=== PATIENT | female | born 1970 | race African-American/Black ===

== ENCOUNTER 2018-04-14 21:57 | Emergency (ER) | payer BC ==
[2018-04-15] MEDS ORDERED: SULFAMETHOXAZOLE/TRIMETHOPRIM 800-160 MG TABLET PO ONE (01:22)
[2018-04-15] MEDS ORDERED: CEPHALEXIN 500 MG CAPSULE PO ONE (01:22)
--- NOTE | 2018-04-15 01:28 | ER Document Report ---
HPI - HPI Pain Level: 5 Notes: Patient presents with possible abscess to the chest wall. Patient reports it has been there for several weeks, patient reports she has squeezed it and has drained out greenish colored fluid. Patient denies any history of abscesses. Past Medical History - General Information source: Patient - Social History Smoking Status: Never Smoker Family History: Reviewed & Not Pertinent Patient has suicidal ideation: No Patient has homicidal ideation: No - Past Medical History Cardiac Medical History: Reports: Hx Hypertension Renal/ Medical History: Denies: Hx Peritoneal Dialysis - Immunizations Hx Diphtheria, Pertussis, Tetanus Vaccination: Yes Vertical Provider Document - CONSTITUTIONAL Notes: PHYSICAL EXAMINATION: GENERAL: Well-appearing, well-nourished and in no acute distress. HEAD: Atraumatic, normocephalic. EYES: Pupils equal round extraocular movements intact, conjunctiva are normal. ENT: Nares patent NECK: Normal range of motion LUNGS: No respiratory distress Musculoskeletal: Normal range of motion NEUROLOGICAL: Normal speech, normal gait. PSYCH: Normal mood, normal affect. SKIN: Warm, Dry, normal turgor, no rashes or lesions noted. Area of erythema with induration and small amount of fluctuance noted to left chest wall just left of the sternum. - INFECTION CONTROL TRAVEL OUTSIDE OF THE [place] IN LAST 30 DAYS: No Course - Re-evaluation Re-evalutation: Incision and drainage performed, see procedure note, large amount of purulent drainage obtained, packing placed, patient instructed to return in 24-36 hours for packing removal. 04/15/18 01:29 - Vital Signs Vital signs: Temp Pulse Resp BP Pulse Ox 98.0 F 80 18 153/86 H 100 04/14/18 22:20 04/14/18 22:20 04/14/18 22:20 04/14/18 22:20 04/14/18 22:20 Procedures - Incision and Drainage chest wall Type: Simple Blade size: 11 I&D procedure: Betadine prep applied, Iodoform packing placed Incision Method: Incision made by scalpel Discharge - Discharge Clinical Impression: Abscess Condition: Stable Disposition: HOME, SELF-CARE Additional Instructions: ABSCESS: You have an abscess (boil). This a pus-forming infection, usually due to staph. Some boils may be left to drain on their own, but most require lancing. From the time the tender lump first appears, it may be three or four days before the abscess is ready to cooper. Local heat and rest help at this stage of treatment. An antibiotic may prevent spread of the infection. Once the abscess is opened, packing may be placed into it. This is done so pus is not sealed inside by premature closure of the cavity. The packing will be removed at your follow-up visit or you may be advised to remove it yourself at home. Sometimes this packing must be replaced a few times during healing. The wound will heal with surprisingly little scar. Depending on the size and location of an abscess, healing can take one to four weeks. You may shower and wash the area around the incision site two or three times a day. Antibiotics may be prescribed, but are usually not necessary after an abscess has been drained. If you develop fever, chills, worsening pain, or increasing swelling in the area, call the doctor or return immediately. POST INCISION AND DRAINAGE: You have had an incision made to allow drainage of an abscess. The incision must remain open so that pus and debris can drain from the wound. If the abscess cavity is large, packing is placed. This keeps the tissues from collapsing and trapping pus inside, while the body shrinks the cavity. The packing may need to be replaced every day or two. The physician will instruct you on the packing. Keep a bulky dressing over the area. Replace it if it becomes saturated with blood or pus. Do not disturb the packing (if present). You may shower and cleanse the area with gentle soap and warm water two or three times a day. Local warmth may be soothing, and may promote faster healing. Return if you develop high fever or chills, or if you note spreading redness, increasing swelling, or increasing tenderness. CEPHALEXIN: The antibiotic you've been prescribed is a member of the cephalosporin class. This type of antibiotic covers a wide variety of infections, including those of the skin, lungs, and urinary tract. It's useful for staph infections. This antibiotic is slightly similar to the penicillin family. In rare cases , a person who is allergic to penicillin will also be allergic to this medication. If you have had a severe allergic reaction to penicillin, and have not taken this antibiotic since that time, notify your doctor. Antibiotics which cover many germs ("broad spectrum" antibiotics) are more likely to cause diarrhea or "yeast" infections. Women prone to vaginal yeast problems may suffer an attack after taking this antibiotic. In infants, oral thrush (white spots "stuck" on the cheek) or yeast diaper rash may result. See your doctor if these problems occur. Call at once if you develop itching, hives , shortness of breath, or lightheadedness. TRIMETHOPRIM-SULFA: You have been given a prescription for trimethoprim-sulfa (TMS, Septra, Bactrim). This is a combination antibiotic of the sulfa class, often used for urinary tract infections, middle ear infections, bronchitis, shigella intestinal infection, and Pneumocystis pneumonia. TMS is usually well-tolerated. Occasional side effects include nausea and decreased appetite. Septra is not recommended for infants less than two months of age. Do not take this medication if you have experienced severe side effects or allergy to sulfa medicine. You should stop this medicine at once and contact your physician if you develop any rash, joint pain, shortness of breath, bruising, or jaundice ( yellow color in the skin), or if you develop any other new or unusual symptoms. FOLLOW-UP CARE: Most simple abscesses will not require a follow up visit. If you had packing placed in the abscess, remove it as instructed by the physician. If you have been referred to a physician for follow-up care, call the physicians office for an appointment as you were instructed or within the next two days. If you experience worsening or a significant change in your symptoms, return to the Emergency Department at any time for re-evaluation. Please return in 24-36 hours to have the packing removed, bring your packing with you as I may need to replace it. Take all medications as prescribed. Once the packing is removed I would like you to use warm soaks to the area and hot compresses. This will help draw out the infection. Prescriptions: Cephalexin Monohydrate [Keflex 500 mg Capsule] 500 mg PO Q6H 5 Days #20 capsule Sulfamethoxazole/Trimethoprim [Bactrim Ds Tablet] 2 tab PO BID #28 tablet Referrals: RUBY SAINZ MD [Primary Care Provider] - Follow up as needed
[2018-04-15 01:58] VITALS: BP 124/65
== END 2018-04-15 01:58 | disposition home or self-care (01) ==
LOC: ER 21:57
PROC: 0H95XZZ Drainage of Chest Skin, External Approach (ICD-10-PCS; principal; 2018-04-14)
DX: L02.213 Cutaneous abscess of chest wall (principal); I10 Essential (primary) hypertension
CPT/HCPCS: 99283; 10060; A6266

== ENCOUNTER 2018-04-15 18:23 | Emergency (ER) | payer BC ==
[2018-04-15 19:12] VITALS: BP 131/72
--- NOTE | 2018-04-15 20:12 | ER Document Report ---
ED Wound - General Chief Complaint: Wound Recheck Stated Complaint: ABSCESS RECHECK Time Seen by Provider: 04/15/18 20:10 Notes: Patient is a 48-year-old female who presents with chief complaint of wound recheck and packing removal request. Patient had abscess to the left chest wall drained approximately 24 hours ago. TRAVEL OUTSIDE OF THE [place] IN LAST 30 DAYS: No - Related Data Allergies/Adverse Reactions: No Known Allergies Allergy (Verified 04/15/18 18:25) Past Medical History - General Information source: Patient - Social History Smoking Status: Never Smoker Chew tobacco use (# tins/day): No Frequency of alcohol use: None Drug Abuse: None Family History: Reviewed & Not Pertinent Patient has suicidal ideation: No Patient has homicidal ideation: No - Past Medical History Cardiac Medical History: Reports: Hx Hypertension Renal/ Medical History: Denies: Hx Peritoneal Dialysis Surgical Hx: Negative - Immunizations Hx Diphtheria, Pertussis, Tetanus Vaccination: Yes Review of Systems - Review of Systems Constitutional: No symptoms reported EENT: No symptoms reported Cardiovascular: No symptoms reported Respiratory: No symptoms reported Gastrointestinal: No symptoms reported Genitourinary: No symptoms reported Female Genitourinary: No symptoms reported Musculoskeletal: No symptoms reported Skin: No symptoms reported Hematologic/Lymphatic: No symptoms reported Neurological/Psychological: No symptoms reported Physical Exam - Vital signs Vitals: Temp Pulse Resp BP Pulse Ox 98.7 F 67 16 131/72 H 100 04/15/18 19:11 04/15/18 19:11 04/15/18 19:11 04/15/18 19:11 04/15/18 19:11 - Notes Notes: PHYSICAL EXAMINATION: GENERAL: Well-appearing, well-nourished and in no acute distress. HEAD: Atraumatic, normocephalic. EYES: Pupils equal round extraocular movements intact, conjunctiva are normal. ENT: Nares patent NECK: Normal range of motion LUNGS: No respiratory distress Musculoskeletal: Normal range of motion NEUROLOGICAL: Normal speech, normal gait. PSYCH: Normal mood, normal affect. SKIN: Warm, Dry, normal turgor, no rashes or lesions noted. Abscess to left chest wall appears to be healing well Course - Re-evaluation Re-evalutation: Packing removed, abscess irrigated with normal saline, packing replaced. Patient will return in 24-48 hours for packing removal and wound recheck. - Vital Signs Vital signs: Temp Pulse Resp BP Pulse Ox 98.7 F 67 16 131/72 H 100 04/15/18 19:11 04/15/18 19:11 04/15/18 19:11 04/15/18 19:11 04/15/18 19:11 Discharge - Discharge Clinical Impression: Abscess Condition: Stable Disposition: HOME, SELF-CARE Additional Instructions: Abscess You have an abscess (boil). This a pus-forming infection, usually due to staph. Some boils may be left to drain on their own, but most require lancing. From the time the tender lump first appears, it may be three or four days before the abscess is ready to cooper. Local heat and rest help at this stage of treatment. An antibiotic may prevent spread of the infection. Once the abscess is opened, packing may be placed into it. This is done so pus is not sealed inside by premature closure of the cavity. The packing will be removed at your follow-up visit or you may be advised to remove it yourself at home. Sometimes this packing must be replaced a few times during healing. The wound will heal with surprisingly little scar. Depending on the size and location of an abscess, healing can take one to four weeks. You may shower and wash the area around the incision site two or three times a day. Antibiotics may be prescribed, but are usually not necessary after an abscess has been drained. If you develop fever, chilling, worsening pain, or increasing swelling in the area, call the doctor or return immediately. Please return tomorrow in 24 hours for repacking of the wound. Continue taking the antibiotics as directed. Referrals: RUBY SAINZ MD [Primary Care Provider] - Follow up as needed
== END 2018-04-15 20:17 | disposition home or self-care (01) ==
LOC: ER 18:23
DX: L02.213 Cutaneous abscess of chest wall (principal)
CPT/HCPCS: 99282

== ENCOUNTER 2018-04-16 18:02 | Emergency (ER) | payer BC ==
[2018-04-16 18:16] VITALS: BP 140/73
--- NOTE | 2018-04-16 18:41 | ER Document Report ---
HPI - HPI Pain Level: 3 Notes: Patient is a 48-year-old female who presents with chief complaint of left chest wall abscess. Patient had this drained 2 days ago, patient has been here every day since then to have packing changed. Patient denies any new complaints. Past Medical History - General Information source: Patient - Social History Smoking Status: Never Smoker Chew tobacco use (# tins/day): No Frequency of alcohol use: None Drug Abuse: None Family History: Reviewed & Not Pertinent Patient has suicidal ideation: No Patient has homicidal ideation: No - Past Medical History Cardiac Medical History: Reports: Hx Hypertension Renal/ Medical History: Denies: Hx Peritoneal Dialysis - Immunizations Hx Diphtheria, Pertussis, Tetanus Vaccination: Yes Vertical Provider Document - CONSTITUTIONAL Notes: PHYSICAL EXAMINATION: GENERAL: Well-appearing, well-nourished and in no acute distress. HEAD: Atraumatic, normocephalic. EYES: Pupils equal round extraocular movements intact, conjunctiva are normal. ENT: Nares patent NECK: Normal range of motion LUNGS: No respiratory distress Musculoskeletal: Normal range of motion NEUROLOGICAL: Normal speech, normal gait. PSYCH: Normal mood, normal affect. SKIN: Warm, Dry, normal turgor, no rashes or lesions noted. Area of abscess appears to be healing well. - INFECTION CONTROL TRAVEL OUTSIDE OF THE [place] IN LAST 30 DAYS: No Course - Re-evaluation Re-evalutation: Packing was removed, patient reports she has only had to change the dressing a couple of times and there has been minimal drainage. I will not repack the wound at this time. I would like patient to follow-up with the surgical clinic as the abscess was fairly extensive. Patient is agreeable to same. - Vital Signs Vital signs: Temp Pulse Resp BP Pulse Ox 98.6 F 82 18 140/73 H 100 04/16/18 18:14 04/16/18 18:14 04/16/18 18:14 04/16/18 18:14 04/16/18 18:14 Discharge - Discharge Clinical Impression: Abscess, Abscess packing removal Condition: Stable Disposition: HOME, SELF-CARE Additional Instructions: Your abscess appears to be healing well. I do not believe we need to repack it. Please continue to take the antibiotics as prescribed. Use wet-to-dry dressings, change them at least twice daily, sooner if they become soiled. Please call the surgical clinic to set up an appointment for follow-up. Return to the emergency department if you develop worsening symptoms, increased pain, red streaking from the area or foul-smelling drainage. Referrals: RUBY SAINZ MD [Primary Care Provider] - Follow up as needed BENI BRONSON MD [ACTIVE STAFF] - Follow up as needed
== END 2018-04-16 18:45 | disposition home or self-care (01) ==
LOC: ER 18:02
DX: L02.213 Cutaneous abscess of chest wall (principal); Z48.01 Encounter for change or removal of surgical wound dressing; I10 Essential (primary) hypertension
CPT/HCPCS: 99282

== ENCOUNTER 2020-05-15 19:53 | Emergency (ER) | payer BC ==
--- NOTE | 2020-05-15 21:39 | ER Document Report ---
ED Medical Screen (RME) - General Stated Complaint: ABDOMINAL PAIN Time Seen by Provider: 05/15/20 21:31 Primary Care Provider: QUINTIN BUENROSTRO PA-C [Primary Care Provider] - Follow up as needed TRAVEL OUTSIDE OF THE [place] IN LAST 30 DAYS: No - HPI Notes: 05/15/20 21:38 50 year old female to the ED with C/o upper abd pain that comes in waves for the past 2-3 days. admits to a couple of episodes of watery vomiting today. States that she also has been having bowel movements where her stool goes "splat". Denies hard stool or diarrhea. States this feels a little like her diverticulitis. patient does have a HR of 129. I performed a brief medical screening exam on the patient determined that the patient needs further evaluation and management by main side provider. I have placed initial orders to help expedite care. - Related Data Allergies/Adverse Reactions: No Known Allergies Allergy (Verified 04/16/18 18:03) Past Medical History - Past Medical History Cardiac Medical History: Reports: Hx Hypertension Renal/ Medical History: Denies: Hx Peritoneal Dialysis - Immunizations Hx Diphtheria, Pertussis, Tetanus Vaccination: Yes Physical Exam - Vital signs Vitals: Temp Pulse Resp BP Pulse Ox 99.3 F 129 H 16 145/95 H 98 05/15/20 20:30 05/15/20 20:30 05/15/20 20:30 05/15/20 20:30 05/15/20 20:30 Course - Vital Signs Vital signs: Temp Pulse Resp BP Pulse Ox 99.3 F 129 H 16 145/95 H 98 05/15/20 20:30 05/15/20 20:30 05/15/20 20:30 05/15/20 20:30 05/15/20 20:30 Doctor's Discharge - Discharge Referrals: QUINTIN BUENROSTRO PA-C [Primary Care Provider] - Follow up as needed
[2020-05-15] MEDS ORDERED: NORMAL SALINE 1000 ML 1,000 ML IV ONE (21:41)
[2020-05-15 22:19] LABS: APPEARANCE,URINE CLEAR; BILIRUBIN,URINE NEGATIVE (NEGATIVE); COLOR,URINE YELLOW; GLUCOSE, URINE NEGATIVE (NEGATIVE); KETONES,URINE NEGATIVE (NEGATIVE); PROTEIN,URINE 30 mg/dL (NEGATIVE); URINE SPECIFIC GRAVITY 1.015; UROBILINOGEN,URINE NEGATIVE mg/dL (<2.0)
[2020-05-15 22:21] LABS: ABSOLUTE BASOPHILS # (AUTO) 0.1 10^3/uL (0.0-0.2); ABSOLUTE LYMPHOCYTES (AUTO) 1.6 10^3/uL (0.5-4.7); ABSOLUTE MONOCYTES (AUTO) 0.9 10^3/uL (0.1-1.4); ABSOLUTE NEUT (AUTO) 13.7 10^3/uL (1.7-8.2); BASOPHILS % (AUTO) 0.5 % (0-2); EOSINOPHILS % (AUTO) 0.2 % (0-6); HEMOGLOBIN 14.6 g/dL (12.0-15.5); MEAN CORPUSCULAR HGB CONC 33.9 g/dL (32.0-36.0); MEAN CORPUSCULAR VOLUME 83 fl (80-97); MONOCYTES % (AUTO) 5.3 % (3-13); PLATELET COUNT 355 10^3/uL (150-450); RED BLOOD COUNT 5.22 10^6/uL (3.72-5.28); RED CELL DISTRIBUTION WIDTH 17.4 % (11.5-14.0); TOTAL CELLS COUNTED % (AUTO) 100 %; WHITE BLOOD COUNT 16.4 10^3/uL (4.0-10.5)
[2020-05-15 22:33] LABS: ALBUMIN 4.2 g/dL (3.5-5.0); ALKALINE PHOSPHATASE 145 U/L (38-126); ANION GAP 12 (5-19); ASPARTATE AMINO TRANSFERASE 18 U/L (14-36); BILIRUBIN,DIRECT 0.3 mg/dL (0.0-0.4); BILIRUBIN,TOTAL 0.8 mg/dL (0.2-1.3); BLOOD UREA NITROGEN 9 mg/dL (7-20); CARBON DIOXIDE 25 mmol/L (22-30); CHLORIDE 102 mmol/L (98-107); GLUCOSE 120 mg/dL (75-110); POTASSIUM 3.8 mmol/L (3.6-5.0); TOTAL PROTEIN 7.7 g/dL (6.3-8.2)
--- NOTE | 2020-05-15 22:39 | RADIOLOGY REPORT (SQ) ---
EXAM DESCRIPTION: [facility]: XR ABDOMEN 1 VIEW (KUB) CLINICAL HISTORY: 50 years Female; abd pain; COMPARISON: None. FINDINGS: Bowel gas pattern is within normal limits, with no significant distention. No pneumatosis. No suspicious calcifications. Bony structures are unremarkable. IMPRESSION: 1. No acute abdominal findings.
--- NOTE | 2020-05-15 23:47 | ER Document Report ---
ED GI/ - General Chief Complaint: Abdominal Pain Stated Complaint: ABDOMINAL PAIN Time Seen by Provider: 05/15/20 21:31 Primary Care Provider: QUINTIN BUENROSTRO PA-C [ALLIED HEALTH PROFESSIONAL] - Follow up as needed Notes: CHIEF COMPLAINT: Upper abdominal pain since yesterday HPI: 50-year-old female with history of diverticulitis previously presenting with upper abdominal pain intermittent in nature over the last 24 hours more persistent today with 1-2 episodes of vomiting. Patient states pain feels like her prior episodes of diverticulitis. No fever. No lower abdominal pain. ROS: See HPI - all other systems were reviewed and are otherwise negative Constitutional: no fever Eyes: no drainage, no blurred vision ENT: no runny nose, no sore throat Cardiovascular: no chest pain Resp: no SOB, no cough GI: + vomiting, no diarrhea, + abdominal pain : no dysuria Integumentary: no rash Allergy: no hives Musculoskeletal: no extremity pain or swelling Neurological: no numbness/tingling, no weakness MEDICATIONS: I agree with the patient medications as charted by the RN. ALLERGIES: I agree with the allergies as charted by the RN. PAST MEDICAL HISTORY/PAST SURGICAL HISTORY: Reviewed and agree as charted by RN. SOCIAL HISTORY: Reviewed and agree as charted by RN. FAMILY HISTORY: No significant familial comorbid conditions directly related to patient complaint EXAM: Reviewed vital signs as charted by RN. CONSTITUTIONAL: Alert and oriented and responds appropriately to questions. Well-appearing; well-nourished HEAD: Normocephalic; atraumatic EYES: PERRL; Conjunctivae clear, sclerae non-icteric ENT: normal nose; no rhinorrhea; moist mucous membranes; pharynx without lesions noted, no uvula edema or deviation, no tonsillar hypertrophy, phonation normal NECK: Supple without meningismus; non-tender; no cervical lymphadenopathy, no masses CARD: RRR; no murmurs, no clicks, no rubs, no gallops; symmetric distal pulses RESP: Normal chest excursion without splinting or tachypnea; breath sounds clear and equal bilaterally; no wheezes, no rhonchi, no rales, pulse oximetry 97% on room air not hypoxic ABD/GI: Obese, normal bowel sounds; non-distended; soft, mild tenderness in the left upper quadrant on palpation, no rebound, no guarding; no palpable organomegaly or masses. BACK: The back appears normal and is non-tender to palpation, there is no CVA tenderness EXT: Normal ROM in all joints; non-tender to palpation; no cyanosis, no effusions, no edema SKIN: Normal color for age and race; warm; dry; good turgor; no acute lesions noted NEURO: Moves all extremities equally; Motor and sensory function intact PSYCH: The patient's mood and manner are appropriate. Grooming and personal hygiene are appropriate. MDM: 50-year-old female upper abdominal pain over the last 24 hours history of diverticulitis states it feels similar. Noted to have a mild leukocytosis of 16,400. No other acute abnormalities with lab work. Will obtain CT imaging to evaluate for diverticulitis TRAVEL OUTSIDE OF THE [place] IN LAST 30 DAYS: No - Related Data Allergies/Adverse Reactions: No Known Allergies Allergy (Verified 04/16/18 18:03) Home Medications: lisinopril/HCTZ Past Medical History - Social History Smoking Status: Never Smoker Family History: Reviewed & Not Pertinent - Past Medical History Cardiac Medical History: Reports: Hx Hypertension Renal/ Medical History: Denies: Hx Peritoneal Dialysis - Immunizations Hx Diphtheria, Pertussis, Tetanus Vaccination: Yes Physical Exam - Vital signs Vitals: Temp Pulse Resp BP Pulse Ox 99.3 F 129 H 16 145/95 H 98 05/15/20 20:30 05/15/20 20:30 05/15/20 20:30 05/15/20 20:30 05/15/20 20:30 Course - Re-evaluation Re-evalutation: 05/16/20 02:27 CT imaging shows a transition point in the sigmoid colon with significant narrowing, radiologist feels this may be suspicious for neoplasm but is not definitively defined. I discussed the CT findings with the patient and her family member at length. She states that she has a tube draw helper that has done a colonoscopy on her but it was greater than 10 years ago. She is aware that it is urgent that she get another colonoscopy to better define the area noted on the CT. Will place her on a short course of pain medication, nausea medication, strict return precautions. discussed with attending Dr. Hay - Vital Signs Vital signs: Temp Pulse Resp BP Pulse Ox 99.3 F 129 H 16 130/89 H 99 05/15/20 20:30 05/15/20 20:30 05/15/20 20:30 05/16/20 01:04 05/16/20 01:04 - Laboratory Result Diagrams: 05/15/20 22:00 05/15/20 22:00 Laboratory results interpreted by me: 05/15/20 05/15/20 05/15/20 22:00 22:00 22:00 WBC 16.4 H RDW 17.4 H Lymph % (Auto) 10.0 L Absolute Neuts (auto) 13.7 H Seg Neutrophils % 84.0 H Glucose 120 H Alkaline Phosphatase 145 H Urine Protein 30 H Urine Blood MODERATE H Discharge - Discharge Clinical Impression: Abdominal pain, left upper quadrant Vomiting Qualifiers: Vomiting type: unspecified Vomiting Intractability: non-intractable Nausea presence: with nausea Qualified Code(s): R11.2 - Nausea with vomiting, unspecified Condition: Stable Disposition: HOME, SELF-CARE Additional Instructions: Take the medications as prescribed no driving if taking narcotics for pain. It is imperative that you follow-up closely with gastroenterology for further evaluation and treatment call for appointment. The CT imaging today did show some abnormalities that will need further outpatient evaluation as discussed Prescriptions: Hydrocodone/Acetaminophen [[place] 5-325 mg Tablet] 1 tab PO Q4 PRN #15 tablet PRN Reason: Ondansetron [Zofran Odt 4 mg Tablet] 1 - 2 tab PO Q4H PRN #15 tab.rapdis PRN Reason: For Nausea/Vomiting Referrals: QUINTIN BUENROSTRO PA-C [ALLIED HEALTH PROFESSIONAL] - Follow up as needed
[2020-05-16] MEDS ORDERED: MORPHINE SULFATE 10 MG/ML INJ IV ONE (01:47)
--- NOTE | 2020-05-16 02:13 | RADIOLOGY REPORT (SQ) ---
CLINICAL INDICATION: UPPER ABD PAIN. HX OF diverticulitis. . TECHNIQUE: Contrast enhanced spiral axial CT imaging was obtained of the abdomen and pelvis with multiplanar reconstructions. This exam was performed according to our departmental dose-optimization program, which includes automated exposure control, adjustment of the mA and/or kV according to patient size and/or use of iterative reconstruction techniques. COMPARISON: None. CORRELATION: None. FINDINGS: Abdomen: The lung bases are grossly clear. The heart is of normal size. No evidence of pleural or pericardial fluid. 3 millimeter nodule right lung base without significant soft tissue component, not of any concern The liver is of normal size contour and attenuation. The gallbladder is nondistended without inflammatory change. The pancreas is unremarkable. The spleen is unremarkable. The adrenals are unremarkable. The kidneys appear grossly normal without evidence of urolithiasis or hydronephrosis. There is no evidence of free air. No free fluid. No bulky adenopathy. Abdominal aorta is nonaneurysmal. Pelvis: The bowel is nonobstructed. Fluid seen throughout the colon to level of the sigmoid colon. There is an abrupt changing caliber of the sigmoid colon, suspicious for a lesion or focal inflammatory process. This is best seen series 3 image 68 through 73. Diverticulosis of the colon. Pelvic contents demonstrate apparent prominence of the endometrium. The appendix is normal. Visualized bones demonstrate age-appropriate osteoarthritis. IMPRESSION: The colon is well distended and fluid-filled. This extends along the sigmoid where there is an abrupt caliber change. This is suspicious for neoplasm in this distribution. Inflammatory changes are possible but considered less likely. There is diverticulosis of the sigmoid colon. Gastroenterology follow-up is advised.
[2020-05-16 03:07] VITALS: BP 120/72
--- NOTE | 2020-05-16 16:06 | EKG REPORT ---
SEVERITY:- OTHERWISE NORMAL ECG - SINUS TACHYCARDIA : Confirmed by: Darrin Rehman MD 16-May-2020 16:05:15
== END 2020-05-16 03:23 | disposition home or self-care (01) ==
LOC: ER 19:53
DX: R10.12 Left upper quadrant pain (principal); R11.2 Nausea with vomiting, unspecified; I10 Essential (primary) hypertension
CPT/HCPCS: 93005; 99285; 96361; 96374; 36415; 83690; 85025; 80053; 81001; 74018; 74177; 93010; J2270; J7030